=== PATIENT | female | born 1985 ===

== ENCOUNTER 2025-08-24 12:17 | Emergency (ER) | payer MEDICAID, OTHER ==
[~2025-08-24] VITALS: Ht 160 cm; Wt 52.7 kg
--- NOTE | 2025-08-24 12:42 | ED.PDOC ---
FILER AND SANDER HPI Comments A 39 YEAR OLD FEMALE PRESENTS TO THE ED WITH COMPLAINT OF VAGINAL BLEEDING . PATIENT STATES THAT SHE IS CURRENTLY EIGHT WEEKS AND STATES SHE STARTED HAVE A HAVE VAGINAL SPOTTING TWO DAYS PRIOR. STATES HE HAS EARLIER TODAY SHE HAS BEEN HAVING SEVERE CRAMPING ABDOMINAL PAIN WITH ASSOCIATED VAGINAL BLEEDING AND PASSAGE OF LARGE BLOOD CLOTS WITH RETAIN PRODUCTS OF CONCEPTION AND CAME FOR FURTHER EVALUATION. PATIENT STATES DESPITE WEARING A PAD HE HAS BEEN HAVING SEVERE VAGINAL BLEEDING. PATIENT LAST MENSTRUAL PERIOD 2024. PATIENT STATES PATIENT DENIES FEVER, CHILLS, SHORTNESS OF BREATH, CHEST PAIN, NAUSEA, VOMITING, HEADACHE, OR OTHER COMPLAINTS. NO OTHER SYMPTOMS OR MODIFYING FACTORS AT THIS TIME. PATIENT IS ALERT, ORIENTED X 4, AND HAS STEADY GAIT. Chief Complaint: Time Seen by MD: 12:37 Reviewed Notes: Medications, Allergies Allergies: Coded Allergies: NO KNOWN ALLERGIES (Unverified , 08/24/25) Information Source: Patient, Significant Other Mode of Arrival: Ambulatory Brought in by: SIGNIFICANT OTHER Timing: Hours, Days Severity: Severe Vaginal Discharge: None Bleeding Quality: Bright Red, Dark, Products of Conception Past Medical History PAST MEDICAL HISTORY: Denies Surgical History: Denies all surgeries MEDICAL SCIENTIFIC LIAISON History: Denies all MEDICAL SCIENTIFIC LIAISON Hx Family History Family History: Reviewed,noncontributory to illness Social History Smoker: Non-Smoker Alcohol: Denies ETOH Use Drugs: Denies Drug Use Lives In: Home Constitutional: denies: chills, diaphoresis, fatigue, fever, malaise, sweats, weakness, others EENTM: denies: blurred vision, double vision, ear bleeding, ear discharge, ear drainage, ear pain, ear ringing, eye pain, eye redness, hearing loss, mouth pain, mouth swelling, nasal discharge, nose bleeding, nose congestion, nose pain, photophobia, tearing, throat pain, throat swelling, voice changes, others Respiratory: denies: cough, hemoptysis, orthopnea, SOB at rest, shortness of breath, SOB with excertion, stridor, wheezing, others Cardiovascular: denies: chest pain, dizzy spells, diaphoresis, Dyspnea on exertion, edema, irregular heart beat, left arm pain, lightheadedness, palpitations, PND, syncope, others Gastrointestinal: reports: abdominal pain; denies: abdomen distended, blood streaked bowels, constipated, diarrhea, dysphagia, difficulty swallowing, hematemesis, melena, nausea, poor appetite, poor fluid intake, rectal bleeding, rectal pain, vomiting, others Genitourinary: reports: abnormal vagina bleeding, ; denies: burning, dyspareunia, dysuria, flank pain, frequency, hematuria, incontinence, pain, vagina discharge, urgency, others Neurological: denies: dizziness, fainting, headache, left sided numbness, left sided weakness, numbness, paresthesia, pre-existing deficit, right sided numbness, right sided weakness, seizure, speech problems, tingling, tremors, weakness, others Musculoskeletal: denies: back pain, gout, joint pain, joint swelling, muscle pain, muscle stiffness, neck pain, others Integumetry: denies: bruises, change in color, change in hair/nails, dryness, laceration, lesions, lumps, rash, wounds, others Allergic/Immunocompromised: denies: Difficulty Healing, Frequent Infections, Hives, Itching, others Hematologic/Lymphatic: denies: anemia, blood clots, easy bleeding, easy bruising, swollen glands, others Endocrine: denies: excessive hunger, excessive sweating, excessive thirst, excessive urination, flushing, intolerance to cold, intolerance to heat, unexplained weight gain, unexplained weight loss, others Psychiatric: denies: anxiety, bipolar disorder, depression, hopeless, panic disorder, schizophrenia, sleepless, suicidal, others All Other Systems: Reviewed and Negative Physical Exam General Appearance: No Apparent Distress, Normal HEENT: Normal ENT Inspection, PERRL/EOMI, Pharynx Normal, TMs Normal Neck: Full Range of Motion, Non-Tender, Normal, Normal Inspection Respiratory: Chest Non-Tender, Lungs Clear, No Accessory Muscle Use, No Respiratory Distress, Normal Breath Sounds Cardiovascular: No Edema, No JVD, No Murmur, No Gallop, Normal Peripheral Pulses, Regular Rate/Rhythm Breast Exam: Deferred Gastrointestinal: No Organomegaly, Non Tender, No Pulsatile Mass, Normal Bowel Sounds, Soft Genitalia: Deferred Pelvic: Normal External Exam, Vaginal Bleeding (WITH MILD BLOOD CLOTS. NO TISSUE SEEN. ) Rectal: Deferred Extremities: No calf tenderness, Normal capillary refill, Normal inspection, Normal range of motion, Non-tender, No pedal edema Musculoskeletal : Apperance: Normal Neurologic: Alert, loaders II-XII nml as Tested, No Motor Deficits, Normal Affect, Normal Mood, No Sensory Deficits Cerebellar Function: Normal Reflexes: Normal Skin: Dry, Normal Color, Warm Peripheral Pulses: 2+ carotid (R), 2+ carotid (L) Lymphatic: No Adenopathy Was a procedure done? Was a procedure done?: Yes Sedation Sedation?: No Pelvic Exam Vaginal Discharge: None Vaginal Lesions: None Vaginal Mass: None Bleeding Quality: Bright Red, Clotted Cervix: os closed (NO TISSUE SEEN. ) Differential Diagnosis (MEDICAL SCIENTIFIC LIAISON) Vaginal Bleeding: - Incomplete, - Threatened, Ectopic , UTI, Other (MISCARRIAGE, RETAINED PRODUCTS OF CONCEPTION) Vaginal Discharge: UTI X-Ray, Labs, Meds, VS Vital Signs Date Time Temp Pulse Resp B/P (MAP) Pulse Ox O2 Delivery O2 Flow Rate FiO2 08/24/25 15:36 99.8 66 18 137/92 (107) 99 99.8 08/24/25 15:36 66 18 98 Room Air 08/24/25 12:19 98.2 96 20 117/91 100 98.2 Lab Test 08/24/25 12:37 Range/Units White Blood Count 10.8 4.4-10.8 10^3/uL Red Blood Count 4.53 4.0-5.20 10^6/uL Hemoglobin 15.6 12.2-16.2 g/dL Hematocrit 44.8 36.0-46.0 % Mean Corpuscular Volume 98.9 80.0-100.0 fL Mean Corpuscular Hemoglobin 34.5 H 28.0-32.0 pg Mean Corpuscular Hemoglobin Concent 34.9 32.0-36.0 g/dL Red Cell Distribution Width 13.3 11.8-14.3 % Platelet Count 281 140-450 10^3/uL Mean Platelet Volume 8.5 6.9-10.8 fL Neutrophils (%) (Auto) 69.5 37.0-80.0 % Lymphocytes (%) (Auto) 21.4 10.0-50.0 % Monocytes (%) (Auto) 6.4 0.0-12.0 % Eosinophils (%) (Auto) 1.7 0.0-7.0 % Basophils (%) (Auto) 1.0 0.0-2.0 % Neutrophils # (Auto) 7.5 1.6-8.6 10 ^3/uL Lymphocytes # (Auto) 2.3 0.4-5.4 10 ^3/uL Monocytes # (Auto) 0.7 0-1.3 10 ^3/uL Eosinophils # (Auto) 0.2 0-0.8 10 ^3/uL Basophils # (Auto) 0.1 0-0.2 10 ^3/uL Nucleated Red Blood Cells 0.0 % Sodium Level 140 136-145 mmol/L Potassium Level 3.6 3.5-5.1 mmol/L Chloride Level 105 98-107 mmol/L Carbon Dioxide Level 24 20-31 mmol/L Anion Gap 11 5-15 Blood Urea Nitrogen 14 9-23 mg/dL Creatinine 0.64 0.550-1.02 mg/dL Glomerular Filtration Rate Calc 115 >90 mL/min BUN/Creatinine Ratio 21.9 H 10.0-20.0 Serum Glucose 90 74-106 mg/dL Calcium Level 9.6 8.7-10.4 mg/dL Beta HCG, Quantitative 5286.6 H 1.5-4.2 mIU/mL PATIENT: MARSHAL MARTINEZACCT: [id number]: [id number] : 1985 LOC: ER ROOM / BED: / AGE / SEX: 39 / F ADM STATUS: REG ER SERVICE [id number] ORDERING PHYSICIAN: CHRISTIN FLANNERY PROCEDURE(s): OB4US - OB ULTRASOUND COMP LESS 14WKS REASON: VAGINAL BLEEDING, CLOTS AND PASSED TISSUE, 5 WEEKS PRE ORDER NUMBER(s): [id number], ACCESSION NUMBER(s): [id number] OB ULTRASOUND <14 WEEKS: HISTORY: VAGINAL BLEEDING, CLOTS AND PASSED TISSUE, 5 WEEKS PRE TECHNIQUE: Multiple real-time grayscale sonographic images of the pelvis with duplex Doppler color flow, spectral and M-mode analysis. TRANSDUCERS: TRANSABDOMINAL FINDINGS: The uterus measures 8.5 X 3.5 X 4.3 CM. GESTATIONAL SAC 1.21 CM CONSISTENT WITH 5 WEEKS 2 DAYS. Gestational sac in the lower uterine segment. POLE 0.27 CM CONSISTENT WITH 5 WEEKS 6 DAYS. Yolk sac visualized. No heart rate. Recommend follow-up study The cervix not measured Right ovary measures 3.6 x 1.3 x 2.8 cm with normal Doppler color flow. Volume of the right ovary is 6.6 mL Left ovary measures 2.9 x 1.8 x 1.7 cm. Volume of the left ovary is 4.1 mL. with normal Doppler color flow IMPRESSION: 1. Gestational sac measures 1.21 cm and is consistent with 5 weeks 2 days. Gestational sac is noted in the lower uterine segment and shows irregular margins. 2. [place]-rump length is 0.27 cm consistent with 5 weeks 6 days. No heart rate recommend follow-up study. ATED BY: BHAVIN WALKER Jr., DO DICTATED DATE/TIME: 08/24/251543 SIGNED BY: BHAVIN WALKER Jr., SIGNED DATE/TIME: 08/24/251543 CC: X-Ray, Labs, Meds, VS Comment COURSE: EXTERNAL MEDICAL RECORDS REVIEWED: [NONE] INDEPENDENT HISTORIANS: [NONE] SOCIAL DETERMINANTS OF HEALTH: [NONE] LABS ORDERED: NONE REVIEWED AND INTERPRETED RESULTS: NONE IMAGING ORDERED: PELVIC ULTRASOUND TRANSVAGINAL ULTRASOUND TREATMENTS ORDERED: NO PROCEDURES PERFORMED: NONE CRITICAL CARE TIME: NONE I HAVE DISCUSSED THE PATIENT WITH THE ATTENDING PHYSICIAN DR. ARRIAZA AND HE AGREES WITH THE PATIENT'S PLAN OF CARE AND DISPOSITION. BASED ON HISTORY OF PRESENT ILLNESS, AND PHYSICAL EXAM, PATIENT WILL BE DISCHARGED HOME. SHARED DECISION MAKING: DISCUSSED WITH PATIENT THAT THEIR WORKUP WAS NORMAL. PATIENT INSTRUCTED TO FOLLOW UP WITH PRIMARY CARE PROVIDER IN 1-2 DAYS FOR RE- EVALUATION OF SYMPTOMS. PATIENT VERBALIZES UNDERSTANDING TO RETURN TO ED FO Time of 1ST Reevaluation: 16:09 Reevaluation 1ST: Unchanged Patient Education/Counseling: Diagnosis, Treatment, Need For Follow Up Family Education/Counseling: Diagnosis, Treatment, Need For Follow Up Medical Screening: No EMC Exist At This Time Departure 1 Departure Time of Disposition: 16:09 Impression: Primary Impression: Vaginal bleeding Additional Impression: Threatened in early Disposition: 01 HOME / SELF CARE / HOMELESS Condition: Stable Additional Instructions: F/U FILER AND SANDER IN 2 DAYS RECHECK BETA-HCG TEST. IF CONDITION BECOME WORSE, RETURN TO ED MAINOR. Discharged With: Self, Spouse Critical Care Note Critical Care Time?: No Stability Stability form required: No Heart Score Heart Score: Heart Score Response (Comments) Value History N/A 0 EKG N/A 0 Age N/A 0 Risk Factors N/A 0 Troponin N/A 0 Total 0 I personally scribed for CHRISTIN FLANNERY ([email or web address]) on 08/24/25 at 12:42. Electronically submitted by Eliseo Jensen ([email or web address]). CHRISTIN FLANNERY Aug 24, 2025 12:42
[2025-08-24 13:16] LABS: Hematocrit 44.8 % (36.0-46.0); Hemoglobin 15.6 g/dL (12.2-16.2); Mean Corpuscular Hemoglobin 34.5 pg (28.0-32.0); Mean Corpuscular Volume 98.9 fL (80.0-100.0); Nucleated Red Blood Cells % 0.0 %
[2025-08-24 13:24] LABS: Chloride 105 mmol/L (98-107); Potassium 3.6 mmol/L (3.5-5.1); Sodium 140 mmol/L (136-145)
[2025-08-24 13:25] LABS: Anion Gap 11 (5-15); Calcium 9.6 mg/dL (8.7-10.4); Carbon Dioxide 24 mmol/L (20-31)
[2025-08-24 13:30] LABS: BUN/Creatinine Ratio 21.9 (10.0-20.0); Blood Urea Nitrogen 14 mg/dL (9-23); Glucose 90 mg/dL (74-106)
[2025-08-24 15:36] VITALS: BP 137/92; PULSE 66; RESP 18; TEMP 99.8; O2SAT 98
--- NOTE | 2025-08-24 15:47 | DVH ---
OB ULTRASOUND <14 WEEKS: HISTORY: VAGINAL BLEEDING, CLOTS AND PASSED TISSUE, 5 WEEKS PRE TECHNIQUE: Multiple real-time grayscale sonographic images of the pelvis with duplex Doppler color flow, spectral and M-mode analysis. TRANSDUCERS: TRANSABDOMINAL FINDINGS: The uterus measures 8.5 X 3.5 X 4.3 CM. GESTATIONAL SAC 1.21 CM CONSISTENT WITH 5 WEEKS 2 DAYS. Gestational sac in the lower uterine segment. POLE 0.27 CM CONSISTENT WITH 5 WEEKS 6 DAYS. Yolk sac visualized. No heart rate. Recommend follow-up study The cervix not measured Right ovary measures 3.6 x 1.3 x 2.8 cm with normal Doppler color flow. Volume of the right ovary is 6.6 mL Left ovary measures 2.9 x 1.8 x 1.7 cm. Volume of the left ovary is 4.1 mL. with normal Doppler color flow IMPRESSION: 1. Gestational sac measures 1.21 cm and is consistent with 5 weeks 2 days. Gestational sac is noted in the lower uterine segment and shows irregular margins. 2. [place]-rump length is 0.27 cm consistent with 5 weeks 6 days. No heart rate recommend follow-up study.
== END 2025-08-24 15:49 | disposition home or self-care (01) ==
LOC: ER 12:17
DX: O20.0 Threatened abortion (principal); Z3A.08 8 weeks gestation of pregnancy
CPT/HCPCS: 36415; 76801; 80048; 84702; 85025

== ENCOUNTER 2025-08-26 11:43 | Emergency (ER) | payer MEDICAID ==
[~2025-08-26] VITALS: Ht 160 cm; Wt 53.0 kg
--- NOTE | 2025-08-26 13:03 | ED.PDOC ---
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 Patient was seen in this ED 2 days ago, was told to return to ED in 2 days for repeat ultrasound to confirm miscarriage. She is about 8 weeks , P:2. She noticed bleeding has improved, is currently experiencing suprapubic discomfort. Denies fever, chills, nausea, vomiting, diarrhea, headache, dizziness, dysuria, hematuria. No other symptoms or modifying factors present at this time. Chief Complaint: Vaginal Bleed Time Seen by MD: 12:55 Reviewed Notes: Medications, Allergies Allergies: Coded Allergies: NO KNOWN ALLERGIES (Unverified , 08/24/25) Information Source: Patient Mode of Arrival: Ambulatory Prehospital treatment: None Severity: Moderate Vaginal Discharge: None Vaginal Lesions: None Bleeding Quality: Clotted Vaginal Mass: None Onset Of Mass/Bleeding: Spontaneous Sexual Activity: Last Consensual [place]: Unknown Control: None History of: Current Symptoms of Possible : Missed Period Associated Signs and Symptoms: Vaginal Bleeding Past Medical History PAST MEDICAL HISTORY: Denies Surgical History: Denies all surgeries ANDROID UI DEVELOPER History: Denies all ANDROID UI DEVELOPER Hx Family History Family History: Reviewed,noncontributory to illness Social History Smoker: Non-Smoker Alcohol: Denies ETOH Use Drugs: Denies Drug Use Lives In: Home Constitutional: denies: chills, diaphoresis, fatigue, fever, malaise, sweats, weakness, others EENTM: denies: blurred vision, double vision, ear bleeding, ear discharge, ear drainage, ear pain, ear ringing, eye pain, eye redness, hearing loss, mouth pain, mouth swelling, nasal discharge, nose bleeding, nose congestion, nose pain, photophobia, tearing, throat pain, throat swelling, voice changes, others Respiratory: denies: cough, hemoptysis, orthopnea, SOB at rest, shortness of breath, SOB with excertion, stridor, wheezing, others Cardiovascular: denies: chest pain, dizzy spells, diaphoresis, Dyspnea on exertion, edema, irregular heart beat, left arm pain, lightheadedness, palpitations, PND, syncope, others Gastrointestinal: denies: abdomen distended, abdominal pain, blood streaked bowels, constipated, diarrhea, dysphagia, difficulty swallowing, hematemesis, melena, nausea, poor appetite, poor fluid intake, rectal bleeding, rectal pain, vomiting, others Genitourinary: reports: abnormal vagina bleeding, ; denies: burning, dyspareunia, dysuria, flank pain, frequency, hematuria, incontinence, pain, vagina discharge, urgency, others Neurological: denies: dizziness, fainting, headache, left sided numbness, left sided weakness, numbness, paresthesia, pre-existing deficit, right sided numbness, right sided weakness, seizure, speech problems, tingling, tremors, weakness, others Musculoskeletal: denies: back pain, gout, joint pain, joint swelling, muscle pain, muscle stiffness, neck pain, others Integumetry: denies: bruises, change in color, change in hair/nails, dryness, laceration, lesions, lumps, rash, wounds, others Allergic/Immunocompromised: denies: Difficulty Healing, Frequent Infections, Hives, Itching, others Hematologic/Lymphatic: denies: anemia, blood clots, easy bleeding, easy bruising, swollen glands, others Endocrine: denies: excessive hunger, excessive sweating, excessive thirst, excessive urination, flushing, intolerance to cold, intolerance to heat, unexplained weight gain, unexplained weight loss, others Psychiatric: denies: anxiety, bipolar disorder, depression, hopeless, panic disorder, schizophrenia, sleepless, suicidal, others All Other Systems: Reviewed and Negative Physical Exam General Appearance: Normal HEENT: Normal ENT Inspection, Pharynx Normal, TMs Normal Neck: Full Range of Motion, Non-Tender, Normal, Normal Inspection Respiratory: Chest Non-Tender, Lungs Clear, No Accessory Muscle Use, No Respiratory Distress, Normal Breath Sounds Cardiovascular: No Edema, No JVD, No Murmur, No Gallop, Normal Peripheral Pulses, Regular Rate/Rhythm Breast Exam: Deferred Gastrointestinal: No Organomegaly, Non Tender, No Pulsatile Mass, Normal Bowel Sounds, Soft Genitalia: Deferred Pelvic: Deferred Rectal: Deferred Extremities: No calf tenderness, Normal capillary refill, Normal inspection, Normal range of motion, Non-tender, No pedal edema Musculoskeletal : Apperance: Normal Neurologic: Alert, wastewater project engineer II-XII nml as Tested, No Motor Deficits, Normal Affect, Normal Mood, No Sensory Deficits Cerebellar Function: Normal Reflexes: Normal Skin: Dry, Normal Color, Warm Lymphatic: No Adenopathy Was a procedure done? Was a procedure done?: No Differential Diagnosis (ANDROID UI DEVELOPER) Vaginal Bleeding: - Complete Mass / Lesion: N/A Vaginal Discharge: N/A X-Ray, Labs, Meds, VS Vital Signs Date Time Temp Pulse Resp B/P (MAP) Pulse Ox O2 Delivery O2 Flow Rate FiO2 08/26/25 11:45 97.9 70 17 139/78 97 97.9 Time of 1ST Reevaluation: 13:25 Reevaluation 1ST: Unchanged Patient Education/Counseling: Diagnosis, Treatment, Prognosis Family Education/Counseling: No Family Present Departure 1 Departure Time of Disposition: 16:26 (Patient's ultrasound no longer has a fetus. We will discharge patient home with OB follow up) Impression: Primary Impression: Complete Disposition: 01 HOME / SELF CARE / HOMELESS Condition: Stable Additional Instructions: Your ultrasound does not show a fetus today. It appears that you passed the gestational sac. You should follow up with your OB as needed. Discharged With: Self Critical Care Note Critical Care Time?: No Stability Stability form required: No Heart Score Heart Score: Heart Score Response (Comments) Value History N/A 0 EKG N/A 0 Age N/A 0 Risk Factors N/A 0 Troponin N/A 0 Total 0 I personally scribed for JOSSY ARRIAZA MD ([email or web address]) on 08/26/25 at 13:03. Electronically submitted by Leda Pérez ([email or web address]). JOSSY ARRIAZA MD Aug 26, 2025 13:03
--- NOTE | 2025-08-26 17:07 | DVH ---
OB ULTRASOUND <14 WEEKS: HISTORY: evaluate status of miscarriage per ob TECHNIQUE: Multiple real-time grayscale sonographic images of the pelvis with duplex Doppler color flow, spectral and M-mode analysis. TRANSDUCERS: Transabdominal, the patient refused transvaginal FINDINGS: The uterus measures 7.5 x 3.9 x 5.6, the uterus is heterogeneous in echotexture. The cervix not measured Right ovary measures 2.6 x 1.7 x 2.3 cm with normal Doppler color flow. There is a 1.1 cm cyst present. Left ovary measures 2.4 x 1.9 x 1.4 cm with normal Doppler color flow. There is a 1.3 cm cystic mass present with a thick wall which shows increased peripheral vascularity. There is no evidence of an IUP. IMPRESSION: 1. Previously seen gestational sac is no longer present, there is no evidence of an IUP. 2. 1.3 cm left ovarian cystic mass with a thick wall which shows increased peripheral vascularity, ectopic not excluded, clinical correlation recommended. [email or web address]
[2025-08-26 17:19] VITALS: BP 152/83; PULSE 74; RESP 18; TEMP 97.7; O2SAT 99
== END 2025-08-26 17:21 | disposition home or self-care (01) ==
LOC: ER 11:43
DX: O03.9 Complete or unspecified spontaneous abortion without complication (principal); Z3A.08 8 weeks gestation of pregnancy
CPT/HCPCS: 76801